=== PATIENT | female | born 1970 | race Caucasian/White ===

== ENCOUNTER 2020-05-12 13:05 | Emergency (ER) | payer OTHER ==
[2020-05-12] MEDS ORDERED: ANTIVERT25 MG PO (14:36)
== END 2020-05-12 15:15 | disposition home or self-care (01) ==
LOC: FER 13:05
DX: H81.10 Benign paroxysmal vertigo, unspecified ear (principal); I10 Essential (primary) hypertension
CPT/HCPCS: 99284